=== PATIENT | female | born 2000 | race Caucasian/White ===

== ENCOUNTER 2022-10-05 11:11 | Inpatient (IN) ==
[2022-10-05] MEDS ORDERED: OXYTOCIN 30 UNITS/500 ML BAG IV PRN ×2 (11:14)
[2022-10-05] MEDS ORDERED: LIDOCAINE 1% LOCAL 20 ML VIAL INFIL PRN (11:14)
[2022-10-05 11:46] LABS: Hematocrit (blood only) 33.8 % (34.1-44.9); Hemoglobin 11.3 g/dl (12.0-16.0); Mean Corpuscular Hemoglobin 31.1 pg (25.0-34.0); Mean Corpuscular Hgb Conc 33.4 g/dL (32.0-36.0); Mean Corpuscular Volume 93.1 fL (80.0-100.0); Mean Platelet Volume 10.3 fL (9.4-12.3); Platelet Count 232 K/uL (130-400); RDW Coefficient of Variation 13.2 % (11.5-14.5); RDW Standard Deviation 45.2 fL (36.4-46.3); Red Blood Count 3.63 M/uL (3.93-5.22); White Blood Count 9.84 K/ul (4.8-10.8)
--- NOTE | 2022-10-05 12:04 | Communication Note ---
Date of Service: October 05, 2022 Pt arrived for planned IOL S: No OB c/o at this time. notable for IUGR, GBS+ with mild PCN allergy and sensitive culture. O: FHT Cat 1, Cvx 50/-2/mod/post, EFW 6-7 A: Term with IUGR for IOL P: Pitocin, Ancef, Epidural on request.
[2022-10-05] MEDS ORDERED: ceFAZolin 2000MG 2,000 MG/15 ML SYR IV STA (12:13)
[2022-10-05] MEDS: LACTATED RINGER'S 1,000 ML IV PRN ×3 (12:32→23:34)
--- NOTE | 2022-10-05 17:18 | Labor Progress Brief Note ---
Date of Service October 05, 2022 Subjective Reason For Note: Routine Evaluation Assessment & Plan (1) IUGR (intrauterine growth restriction) affecting care of mother: Plan: 22-year-old G1P) currently at 39 weeks gestational age. presents for induction of labor secondary to IUGR. 1. Fetus: Cat 1 2. Labor: Pitocin. AROM clr 3. GBS positive - ANCEF 4. Vitals: WNL (2) Supervision of normal first : (3) Encounter for induction of labor: Admission and Anticipated Discharge Date Admission Date: October 05, 2022 Physical Exam Genitourinary: Manual OB Exam: + cervical dilation 3 cm, + cervical effacement 70%, + station -2 and + amniotic fluid (AROM) clear OB Exam Monitor Tracing: + external FHT monitor used, + external uterine monitor used, + category I and + normal FHT variability Results & Data ([facility]) Vital Signs (Past 12 Hours) Vital Signs Temp Pulse Resp BP 10/05/22 17:02 61 113/71 10/05/22 16:46 58 L 116/67 10/05/22 16:31 56 L 110/67 10/05/22 16:16 77 117/70 10/05/22 16:01 56 L 116/65 10/05/22 15:46 62 106/58 L 10/05/22 15:32 60 112/69 10/05/22 15:17 64 108/63 10/05/22 15:01 36.8 C 60 18 110/66 10/05/22 14:46 88 110/69 10/05/22 14:33 57 L 109/67 10/05/22 14:16 60 107/56 L 10/05/22 14:02 56 L 109/69 10/05/22 13:46 56 L 101/57 L 10/05/22 13:39 65 108/67 10/05/22 13:16 73 109/61 10/05/22 13:01 85 104/65 10/05/22 12:46 89 112/67 10/05/22 11:41 74 110/67 10/05/22 11:32 36.8 C 18 Coding Level of Care Code None Diagnoses IUGR (intrauterine growth restriction) affecting care of mother O36.5990 Supervision of normal first Z34.00 Encounter for induction of labor Z34.90
[2022-10-05] MEDS ORDERED: BUPIVACAINE 0.25% 30 ML VIAL ONE (18:58)
[2022-10-05] MEDS ORDERED: fentaNYL citrate 100 MCG/2 ML VIAL ONE (18:58)
[2022-10-05] MEDS ORDERED: ePHEDrine sulfate 50 MG/ML AMP ONE (18:58)
[2022-10-05] MEDS ORDERED: LIDOCAINE 2%/EPINEPHRINE 1:200,000 20 ML SDV ONE (18:58)
[2022-10-05] MEDS ORDERED: SODIUM CHLORIDE 0.9% INJ 10 ML VIAL ONE (18:58)
[2022-10-05] MEDS ORDERED: fentaNYL 2MCG/ML ROPIVACAINE 1.25MG/ML 100 ML BAG EPI ONE (18:59)
[2022-10-05] MEDS ORDERED: ceFAZolin 1000MG 1,000 MG/7.5 ML SYR IV PRN (19:01)
[2022-10-05] MEDS ORDERED: ePHEDrine sulfate 50 MG/ML AMP IV PRN (19:16)
[2022-10-05] MEDS ORDERED: ONDANSETRON INJ 2 MG/ML 2 ML VIAL IV PRN (19:16)
[2022-10-05] MEDS ORDERED: NALOXONE HCL 0.4 MG/1 ML VIAL/CARP IV PRN (19:16)
[2022-10-05] MEDS ORDERED: NALOXONE HCL 1 MG in SODIUM CHLORIDE 0.9% 1000ML 1,000 ML IV PRN (19:16)
[2022-10-05] MEDS ORDERED: diphenhydrAMINE 50 MG/ML VIAL IV PRN (19:16)
[2022-10-05] MEDS ORDERED: NALBUPHINE HCL INJ 10 MG/ML AMP IV PRN (19:16)
[2022-10-05] MEDS ORDERED: fentaNYL 2MCG/ML ROPIVACAINE 1.25MG/ML 100 ML BAG EPI PRN (19:16)
--- NOTE | 2022-10-05 19:16 | Anesthesiology Consultation ---
Date of Service October 05, 2022 Assessment & Plan Chart Review Chart Review: Patient NOT seen in Pre Admission Testing and Acceptable Risk for Labor Epidural Consults Requested none ASA ASA2 Proposed Anesthesia Anesthesia Type: Labor Epidural Risk / Benefits Reviewed With: PT / POA / Parent / Guardian, Accepts Plan and Informed Consent Obtained History Height/Weight Height: 5 ft Weight: 77.564 kg Allergies Allergy/AdvReac Type Severity Reaction Status Date / Time Penicillins Allergy Mild Hives Verified 10/05/22 15:49 Medications Home Medications Medication Instructions Recorded Confirmed Last Taken prenat.vits,rahul,nhj-humk-mwonf 1 tab PO DAILY 08/12/22 10/02/22 Unknown Active Medications Generic Name Dose Route Start Last Admin Trade Name Freq PRN Reason Stop Dose Admin Oxytocin 30 units in 500 mls @ 17 mls/hr 10/05/22 11:14 10/05/22 17:30 Pitocin IV 10/07/22 11:13 1.02 units/hr .Q24H PRN 17 mls/hr Labor Induction/Augmentation Titration Protocol 1.02 UNITS/HR Lactated Ringer's 1,000 mls @ 125 mls/hr 10/05/22 11:14 10/05/22 19:08 Lr IV 10/07/22 11:13 999 mls/hr .Q8H PRN Administration L&D Protocol Protocol Past Medical History Medical History (Updated 10/05/22 @ 17:15 by Morris Cason MD) Varicella vaccination Exercise / Class Metabolic Activity II 4-5 Yardwork/Stairs/Walk up hill Past Family History Family History Mother Diabetes Grandmother (Maternal) No problems noted. Grandfather (Paternal) Heart disease Denies family history of Ovarian cancer Breast cancer Colorectal cancer Past Surgical History Surgical History No history of previous surgery Past Anesthesia History No Hx of Anesthesia Complications and No Family Hx of Anesthesia Complications History of PONV No Hx of PONV and No Hx of Motion Sickness Social History Smoking Status: Former smoker tobacco type: e-cigarettes Do You Dip or Chew Tobacco: No Hx Alcohol Use: No Hx Substance Use: No Physical Exam Vital Signs Last Vital Signs Temp 36.7 C 10/05/22 17:06 Pulse 73 10/05/22 19:13 Resp 18 10/05/22 15:01 BP 115/68 10/05/22 19:01 Pulse Ox 99 10/05/22 19:13 ENMT Mouth: no dentition abnormality Thyromental Distance: > or= 3.5 Finger Breadths Mallampati Class: II Neck normal visual inspection Respiratory normal respiratory effort Auscultation: lungs clear to auscultation bilaterally Cardiovascular Rate/Rhythm: regular rate and regular rhythm Psychiatric Orientation: alert Testing Laboratory Results 10/05/22 11:27
[2022-10-06] MEDS ORDERED: HYDROCORTISONE ACETATE 25 MG SUPP PR PRN (01:48)
[2022-10-06] MEDS ORDERED: bisacodyL 10 MG SUPP PR PRN (01:48)
[2022-10-06] MEDS ORDERED: BENZOCAINE 20% AER SPR 82.5 GM CAN EXT PRN (01:48)
[2022-10-06] MEDS ORDERED: OXYTOCIN 30 UNITS/500 ML BAG IV PRN (01:48)
[2022-10-06] MEDS ORDERED: DIPHTHERIA/TETANUS/PERTUSSIS 0.5 ML SYR/VIAL IM ONE (01:48)
--- NOTE | 2022-10-06 03:21 | Anesthesia Procedure Note ---
Date of Service October 06, 2022 Anesthesia Post Epidural Note Vital Signs Vital Signs: Temp Pulse Resp BP Pulse Ox 36.6 C 57 L 18 113/61 99 10/05/22 22:43 10/06/22 03:11 10/06/22 03:00 10/06/22 03:11 10/06/22 01:29 Pain Intensity Lower Abdomen: Pain Intensity: 2 Notes Mental Status: alert / awake / arousable Nausea / Vomiting: adequately controlled Pain: adequately controlled Airway Patency, RR, SpO2: stable & adequate BP & HR: stable & adequate Hydration State: stable & adequate Neuraxial Anesthesia: was administered and sensory block is resolving Anesthetic Complications: no major complications apparent and Pt Satisfied with anesthetic care Epidural: Removed without complications and With tip intact
[2022-10-06] MEDS: IBUPROFEN 600 MG TAB PO PRN ×4 (06:41→21:32)
--- NOTE | 2022-10-06 08:15 | Delivery Summary ---
DATE OF PROCEDURE: 10/05/2022 PROCEDURE: Normal spontaneous vaginal delivery. SURGEON: Morris Cason MD. PREOPERATIVE DIAGNOSES: 1. Single intrauterine at 39 weeks gestational age. 2. IUGR. 3. GBS positive. POSTOPERATIVE DIAGNOSES: 1. Single intrauterine at 39 weeks gestational age. 2. IUGR. 3. GBS positive 4. Status post procedure. ESTIMATED BLOOD LOSS: 100 mL DRAINS: None. FLUIDS: Continuous lactated Ringer. URINE OUTPUT: Not measured. COMPLICATIONS: None. FINDINGS: Viable female with weight of 6 pounds 0 ounces and Apgars of 9 and 9 at one and fi ve minutes respectively. DESCRIPTION OF PROCEDURE: The patient progressed to 10 cm dilated, 100% effaced, positive 2 station, pushed over intact perineum with epidural anesthesia and delivered a viable female with weig ht and Apgars as noted above. Head of the delivered in MARIO position, restituted to left draper sverse. No nuchal cord was noted. Body and shoulders quickly followed. was noted to be vig orous soon after delivery and 1 minute delayed cord clamping was initiated. Cord was then double cla mped and cut. remained on maternal abdomen. Cord blood was then obtained. Attention was th en turned to delivery of the placenta, which was delivered intact, 3-vessel cord, gentle cord tractio n. On inspection of the perineum, vagina, cervix was noted to be no lacerations. Needle, sponge, and instrument counts were correct at the completion of the case with mother and stable in the i mmediate post-delivery period. Job ID: [id number]
[2022-10-06] MEDS: ACETAMINOPHEN 325 MG TAB PO PRN ×2 (08:21→18:29)
[2022-10-06] MEDS: FERROUS SULFATE 325 MG TAB PO SCH (08:22)
[2022-10-06] MEDS: PRENATAL VITAMIN 1 TAB PO SCH (08:22)
[2022-10-06] MEDS: DOCUSATE SODIUM 100 MG CAP PO SCH ×2 (08:22→21:30)
--- NOTE | 2022-10-07 05:58 | Obstetrical Progress Note ---
Date of Service <Sammie Loo MD - Last Filed: 10/07/22 07:29> October 07, 2022 Assessment & Plan <Sammie Loo MD - Last Filed: 10/07/22 07:29> (1) care following vaginal delivery: 22 y/o female presented for induction of labor now PPD1 s/p . GBS+ clindamycin sensitive - treated during labor. Rubella immune. O+. Satisfactory post- progress. Encourage ambulation. Tolerating PO. Cleared from an OB perspective - f/u in 6 weeks in office. <Marilee Callahan MD, FACOG - Last Filed: 10/07/22 07:30> (1) care following vaginal delivery: Subjective <Sammie Loo MD - Last Filed: 10/07/22 07:29> Ambulation: ambulating normally Voiding: no voiding problems Passing Gas:: Yes Diet Tolerance:: regular diet Lochia:: Small Feeding Type:: breast feeding no f/c/SOB/CP/calf pain Physical Exam <Sammie Loo MD - Last Filed: 10/07/22 07:29> Constitutional WD/WN, vitals as above Respiratory normal respiratory effort, lungs clear to auscultation Cardiovascular RRR, no murmur, no edema Extremities: no calf tenderness Psychiatric A+Ox3, euthymic affect Genitourinary OB Exam Abdomen: + fundal height (@ the level of the umbilicus) Fundus: + firm Results & Data ([facility]) <Sammie Loo MD - Last Filed: 10/07/22 07:29> Vital Signs (Past 12 Hours) Vital Signs Temp Pulse Resp BP O2 Del Method 10/07/22 01:00 37.0 C 70 18 120/67 Room Air 10/06/22 20:00 36.4 C L 73 18 118/73 Room Air <Marilee Callahan MD, FACOG - Last Filed: 10/07/22 07:30> Co-Signing Physician Notes Resident Physician Supervision Note: I interviewed and examined the patient. Discussed with Dr. Loo and agree with findings and plan as documented in the note. Any exceptions or clarifications are listed here: Doing well. Plan d/c. Instructions given. Documented By: Marilee Callahan MD, FACOG Resident Activity Tracking <Sammie Loo MD - Last Filed: 10/07/22 07:29> Resident Involvement: Resident Care Provided Care Provided: OB Delivery
[2022-10-07 07:00] LABS: Hematocrit (blood only) 31.2 % (34.1-44.9); Hemoglobin 10.5 g/dl (12.0-16.0)
[2022-10-07] MEDS: PRENATAL VITAMIN 1 TAB PO SCH (07:33)
[2022-10-07] MEDS: DOCUSATE SODIUM 100 MG CAP PO SCH (07:33)
[2022-10-07] MEDS: FERROUS SULFATE 325 MG TAB PO SCH (07:34)
[2022-10-07] MEDS ORDERED: bisacodyL 5 MG TABEC PO SCH (20:00)
== END 2022-10-07 13:30 | disposition home or self-care (01) | DRG 807 ==
LOC: 4S1 11:11 → 4E2 10-06 03:59